=== PATIENT | male | born 1935 | race Caucasian/White ===

== ENCOUNTER 2017-01-06 01:42 | Inpatient (IN) | payer MEDICARE, OTHER ==
[2017-01-06] VITALS (8 sets, daily range): BP systolic 103–156; BP diastolic 54–76
[~2017-01-06] VITALS: Ht 170.2 cm; Wt 97.5 kg
[~2017-01-06 01:42] MED LIST: ATOR20TA PO; LIPA1CAP15 PO; METO-302 PO; MIRABEGRON PO; PANT40TA2 PO; TERA5CAP4 PO
--- NOTE | 2017-01-06 01:50 | NUR ---
PT PRESENTED TO THE ER WITH A C/O CP. PT STATED THAT HE HAD AN ANGIOGRAM 2 WKS AGO AT [facility]. PT STATED THAT HE HAD CP 3 DAYS AGO AND WAS GIVEN A ZIO XT HEART MONITOR TO WEAR. PT IS NOT ALLOWED TO HAVE AN XRAY WHILE WEARING THIS MONITOR. PT IS AA&O X4. 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 PT IS C/O CP THAT RADIATES TO AND FROM THE RT AND LT SHOULDERS. PT IS ON THE MONITOR, CONTINUOUS PULSE OX, AND IS PLACED ON 2L O2 VIA NC PER CHEST PAIN PROTOCOL. 18G IV STARTED IN RT WRIST. BLOOD WAS DRAWN AND SENT TO LAB.
[2017-01-06] MEDS ORDERED: NITROGLYCERIN 0.4 MG/TAB BOTTLE SL ONE (02:00)
[2017-01-06] MEDS ORDERED: MORPHINE SULFATE INJ 2 MG/ML DISP.SYRIN IV ONE (02:00)
[2017-01-06] MEDS ORDERED: ASPIRIN 325 MG TABLET PO ONE (02:00)
[2017-01-06] MEDS ORDERED: ASPIRIN 325 MG TABLET ONE (02:06)
[2017-01-06] MEDS ORDERED: MORPHINE SULFATE INJ 10 MG/ML DISP.SYRIN ONE (02:08)
--- NOTE | 2017-01-06 02:12 | NUR ---
RECEIVED MORPHINE 10MG FROM ICU PYXIS. 6MG MORPHINE IV WASTED BY RN IGNACIA AND ALEIDA. ORDERS TO GIVE 4MG MORPHINE IVP PER DR. GALLOWAY
--- NOTE | 2017-01-06 02:13 | NUR ---
RN: NURSING SCENERY BUILDER REQUESTED MORPHINE 10MG IV TO BE PULLED OUT FROM ICU OMNICELL. MD ORDER PER NURSING SCENERY BUILDER IS MORPHINE 4MG IV FOR CHEST PAIN. MORPHINE VIAL HANDED TO HILDA. MEDICATION NOT ADMINISTERED BY MYSELF OR STAFF MEMBER WHO WITNESSED WASTE.
[2017-01-06 02:15] LABS: BASOPHILS % (AUTO) 0.4 % (0.0-2.0); EOSINOPHILS # (AUTO) 0.1 /CMM (0.0-0.7); EOSINOPHILS % (AUTO) 1.9 % (0.0-6.0); HEMATOCRIT 36 % (39-51); HEMOGLOBIN 12.1 g/dL (13.5-17.5); LYMPHOCYTES # (AUTO) 1.6 /CMM (0.8-4.8); LYMPHOCYTES % (AUTO) 26.6 % (20.0-44.0); MEAN CORPUSCULAR HEMOGLOBIN 31 PG (26.0-33.0); MEAN CORPUSCULAR HGB CONC 33 g/dl (31.0-36.0); MEAN CORPUSCULAR VOLUME 93 fL (80-96); MONOCYTES # (AUTO) 0.7 /CMM (0.1-1.30); MONOCYTES % (AUTO) 11.5 % (2.0-12.0); NEUTROPHILS # (AUTO) 3.5 /CMM (1.8-8.9); NEUTROPHILS % (AUTO) 59.6 % (43.0-81.0); PLATELET COUNT (AUTO) 144 /CMM (150-450); RDW COEFFICIENT OF VARIATION 12.7 (11.5-15.0); WHITE BLOOD COUNT (AUTO) 5.9 K/uL (4.3-11.0)
--- NOTE | 2017-01-06 02:15 | NUR ---
PT STATED THAT THE MORPHINE IS NOT DOING ANYTHING FOR THE PAIN. PT WANTS THE DOCTOR TO KNOW THAT HE DOES NOT WANT ANY MORE MORPHINE. MD IS AWARE.
[2017-01-06 02:24] LABS: CALCIUM, SERUM 8.9 mg/dL (8.5-10.1); CARBON DIOXIDE 25 mmol/L (21-32); CHLORIDE 107 mmol/L (98-107); CREATININE 1.9 mg/dL (0.6-1.3); GLUCOSE 132 mg/dL (74-106); POTASSIUM 4.3 mmol/L (3.5-5.1); SODIUM SERUM 140 mmol/L (136-145); UREA NITROGEN, BLOOD 30 mg/dL (7-18)
[2017-01-06 02:26] LABS: INR 1.03 (0.87-1.13); PROTHROMBIN TIME 10.7 SECS (9.5-12.7)
[2017-01-06 02:31] LABS: TROPONIN I < 0.017 ng/mL (0.00-0.056)
[2017-01-06 02:37] LABS: B-TYPE NATRIURETIC PEPTIDE 181 PG/ML (0-125)
--- NOTE | 2017-01-06 02:50 | NUR ---
BED 306-1 TELE
--- NOTE | 2017-01-06 03:15 | NUR ---
PT APPEARS TO BE RESTING COMFORTABLY WITH NO S/S OF PAIN OR DISTRESS. RESP EVEN AND UNLABORED.
--- NOTE | 2017-01-06 03:30 | NUR ---
CALLING REPORT TO DARREL COONEY - TELE
--- NOTE | 2017-01-06 03:40 | NUR ---
PT TRANSPORTED TO TELE VIA GURNEY WITH EMT AND RN, PER PROTOCOL.
--- NOTE | 2017-01-06 03:45 | NUR ---
TELE/RN OPENING NOTES PT RECEIVED FROM ER VIA [facility]. AMBULATED TO BED WITH STANDBY ASSISTANCE. PLACE ON 2L O2 VIA NC, BREATHING EVEN AND UNLABORED. DENIES SOB. CHEST PAIN 2-3/10 TO LEFT SIDE, STATES HE "FEELS MUCH BETTER AND ITS LIGHT PRESSURE". PLACED ON TELE MONITOR SHOWING SINUS MARIAELENA WITH HEART RATE AT 54. IV TO RIGHT WRIST PATENT AND INTACT. BED IN LOW/LOCKED POSITION WITH CALL LIGHT IN REACH. SIDE RAILS UPX2. ORIENTED PT TO ROOM AND CALL LIGHT. WILL CONTINUE TO MONITOR
[2017-01-06] MEDS ORDERED: hydrALAZINE HCL 25 MG TABLET PO PRN (04:00)
[2017-01-06] MEDS ORDERED: ACETAMINOPHEN 325 MG TABLET PO PRN (04:00)
[2017-01-06] MEDS ORDERED: ZOLPIDEM TARTRATE 5 MG TABLET PO PRN (04:00)
[2017-01-06] MEDS ORDERED: MORPHINE SULFATE INJ 2 MG/ML DISP.SYRIN IV PRN (04:00)
[2017-01-06] MEDS ORDERED: HYDROCODONE/APAP 5/325MG 1 EACH TABLET PO PRN (04:00)
[2017-01-06] MEDS ORDERED: MAG HYDROX/AL HYDROX/SIMETH 30 ML UDC PO PRN (04:00)
[2017-01-06] MEDS ORDERED: MAGNESIUM HYDROXIDE 30 ML UDC PO PRN (04:00)
[2017-01-06] MEDS ORDERED: ONDANSETRON HCL/PF 4 MG/2 ML VIAL IVP PRN (04:00)
[2017-01-06] MEDS ORDERED: ENOXAPARIN SODIUM 40 MG/0.4 ML DISP.SYRIN SQ SCH (04:00)
[2017-01-06] MEDS ORDERED: Z GUARD REMEDY 2 OZ OINT TP PRN (04:00)
[2017-01-06] MEDS ORDERED: ENOXAPARIN SODIUM 40 MG/0.4 ML DISP.SYRIN SQ ONE (04:36)
--- NOTE | 2017-01-06 06:49 | NUR ---
TELE/RN CLOSING NOTES PT ASLEEP, EASILY AROUSABLE TO NAME. A/OX4. REMAINS ON 2L O2 VIA NC, BREATHING EVEN AND UNLABORED. NO COMPLAINTS OF CHEST PAIN AT THIS TIME. PT IS COMFORTABLE. IV TO RIGHT WRIST PATENT AND INTACT. HOLTER MONITOR IN PLACE. ON TELE MONITOR SHOWING SINUS MARIAELENA WITH HR AT 53. PT MADE COMFORTABLE DURING SHIFT. ALL NEEDS MET. BED IN LOW/LOCKED POSITION WITH CALL LIGHT IN REACH. SIDE RAILS UPX2. WILL ENDORSE TO AM SHIFT JASON.
--- NOTE | 2017-01-06 07:24 | NUR ---
RN OPENING NOTES RECEIVED PATIENT RESTING COMFORTABLY IN BED. EASILY AROUSABLE. AOX4. DENIES CP OR SOB. DENIES ANY PAIN AT THIS TIME. RESPIRATIONS EVEN AND UNLABORED. NO ACUTE DISTRESS NOTED. IV ACCESS ON THE RIGHT WRIST 18G PATENT AND INTACT. BED LOCKED IN THE LOWEST POSITION WITH SIDE RAILS UP X2. CALL LIGHT WITHIN REACH. WILL CONTINUE TO MONITOR, ASSESS AND EDUCATE PATIENT THROUGHOUT SHIFT.
[2017-01-06] MEDS ORDERED: HYDROMORPHONE 1 MG/1 ML DISP.SYRIN IV PRN (07:30)
[2017-01-06] MEDS: METOPROLOL SUCCINATE 25 MG TAB.SR.24H PO SCH (09:25)
[2017-01-06] MEDS: ATORVASTATIN 10 MG TABLET PO SCH (09:25)
[2017-01-06] MEDS: ASPIRIN 81 MG TAB.CHEW PO SCH (09:26)
[2017-01-06] MEDS ORDERED: IV NS 0.9% 1,000 ML IV PRN (09:28)
[2017-01-06] MEDS: AMLODIPINE BESYLATE 10 MG TABLET PO SCH (09:30)
--- NOTE | 2017-01-06 11:14 | NUR ---
RN NON ADMIN NOTES HELD [facility]. BP 98/51.
--- NOTE | 2017-01-06 14:11 | NUR ---
RN NOTES PATIENT HAS POSITIVE TROPONIN. CALLED AND REPORTED TO DR. GENTILE. PATIENT TO HAVE TROP. IN THE AM. PATEINT ALSO TO BE PLACED BACK ON TELE PER DR. GENTILE. WILL CARRY OUT ORDERS.
--- NOTE | 2017-01-06 19:01 | NUR ---
RN CLOSING NOTES PATIENT RESTING COMFORTABLY IN BED. AOX4. IV PATENT AND INTACT WITH NS RUNNING AT 125ML/HR. ON TELE MONITOR READING SB 53. ON 2LPM. NO ACUTE DISTRESS. RESPIRATIONS EVEN AND UNLABORED. DENIES ANY PAIN AT THIS TIME. DENIES SOB AND CP. ALL NEEDS MET. ALL MEDS GIVEN NEEDED. WILL ENDORSE TO NIGHT RN FOR JASON.
--- NOTE | 2017-01-06 19:30 | NUR ---
RN NOTE; RECEIVED PT UP IN W/C USING HIS LAPTOP. AWAKE AND ALERT. BREATHING EVENLY. NO SOB. O2 SAT 97% ON RA. NAD. SKIN WARM AND DRY,. NO C/O PAIN OR DISCOMFORT. DENIED CHEST PAIN AT THIS TIME. TELE MONITOR IN PLACE READING SB. NEEDS ATTENDED. CALL LIGHT WITHIN REACH ,WILL CONT TO MONITOR.
--- NOTE | 2017-01-06 19:43 | NUR ---
PT REPORTED NO BM FOR PAST TWO DAYS AND C/O CONSTIPATION. DARREL DUNBAR FOR DAY SHIFT SPOKE TO DR. LALA PERSONALLY ON THE FLOOR AND RECEIVED VERBAL ORDER FOR COLACE 250MG PO QHS. ORDER WAS PLACED.
[2017-01-06] MEDS ORDERED: DOCUSATE SODIUM 250 MG CAPSULE PO ONE (21:13)
[2017-01-06] MEDS ORDERED: DOCUSATE SODIUM 250 MG CAPSULE PO SCH (22:00)
[2017-01-07] VITALS: BP 156/79
[2017-01-07 04:00] VITALS: BP 128/69
--- NOTE | 2017-01-07 06:25 | NUR ---
PT IN BED SLEEPING. BREATHING EVENLY. NO SOB. NO ACUTE EVENT DURING THE NIGHT. NO C/O CP. SR/ SB ON TELE MONITOR. REFUSED IVF HYDRATION MOST OF THE TIME. NEEDS ATTENDED . PRUNE JUICE AND COLACE GIVEN FOR C/O CONSTIPATION. WILL ENDORSE TO AM SHIFT TO F/U. NEEDS ATTENDED, CALL LIGHT WITHIN REACH, WILL CONT TO MONITOR AND WILL ENDORSE TO AM SHIFT FOR JASON.
[2017-01-07 06:49] LABS: BASOPHILS % (AUTO) 0.7 % (0.0-2.0); EOSINOPHILS # (AUTO) 0.1 /CMM (0.0-0.7); EOSINOPHILS % (AUTO) 2.4 % (0.0-6.0); HEMATOCRIT 36 % (39-51); HEMOGLOBIN 12.1 g/dL (13.5-17.5); LYMPHOCYTES # (AUTO) 1.3 /CMM (0.8-4.8); MEAN CORPUSCULAR HEMOGLOBIN 31 PG (26.0-33.0); MEAN CORPUSCULAR HGB CONC 33 g/dl (31.0-36.0); MEAN CORPUSCULAR VOLUME 93 fL (80-96); MONOCYTES # (AUTO) 0.7 /CMM (0.1-1.30); MONOCYTES % (AUTO) 11.3 % (2.0-12.0); NEUTROPHILS # (AUTO) 3.7 /CMM (1.8-8.9); NEUTROPHILS % (AUTO) 63.6 % (43.0-81.0); PLATELET COUNT (AUTO) 147 /CMM (150-450); RDW COEFFICIENT OF VARIATION 12.4 (11.5-15.0); RED BLOOD CELL COUNT(AUTO) 3.88 MIL/uL (4.5-6.0); WHITE BLOOD COUNT (AUTO) 5.9 K/uL (4.3-11.0)
[2017-01-07 07:00] VITALS: BP 122/71
[2017-01-07 07:06] LABS: CHOLESTEROL 99 mg/dL (<200); HDL CHOLESTEROL 37 mg/dL (40-60); LDL 53 mg/dL (0-99); TRIGLYCERIDES 78 mg/dL (30-150)
[2017-01-07 07:12] LABS: ALANINE AMINOTRANSFERASE 19 U/L (12-78); ALBUMIN 3.1 g/dL (3.4-5.0); ALKALINE PHOSPHATASE 88 U/L (46-116); ASPARTATE AMINOTRANSFERASE 24 U/L (15-37); BILIRUBIN,TOTAL 0.8 mg/dL (0.2-1.0); CALCIUM, SERUM 8.9 mg/dL (8.5-10.1); CARBON DIOXIDE 25 mmol/L (21-32); CHLORIDE 109 mmol/L (98-107); CREATININE 1.4 mg/dL (0.6-1.3); GLUCOSE 95 mg/dL (74-106); PHOSPHORUS 3.1 mg/dL (2.5-4.9); POTASSIUM 4.4 mmol/L (3.5-5.1); SODIUM SERUM 142 mmol/L (136-145); TOTAL PROTEIN, SERUM 6.6 g/dL (6.4-8.2); UREA NITROGEN, BLOOD 23 mg/dL (7-18)
[2017-01-07 07:22] LABS: TROPONIN I 0.539 ng/mL (0.00-0.056)
--- NOTE | 2017-01-07 07:26 | NUR ---
RN OPENING NOTES RECEIVED PATIENT RESTING COMFORTABLY IN BED. EASILY AROUSABLE. AOX4. DENIES CP OR SOB. DENIES ANY PAIN AT THIS TIME. RESPIRATIONS EVEN AND UNLABORED. NO ACUTE DISTRESS NOTED. IV ACCESS ON THE RIGHT WRIST 18G PATENT AND INTACT. REFUSING IV NS @125 ML/HR. BED LOCKED IN THE LOWEST POSITION WITH SIDE RAILS UP X2. CALL LIGHT WITHIN REACH. WILL CONTINUE TO MONITOR, ASSESS AND EDUCATE PATIENT THROUGHOUT SHIFT.
--- NOTE | 2017-01-07 07:27 | NUR ---
RN NOTES CRITICAL RESULT REPORTED TO DR. LALA. TROP 0.538. WILL CONTINUE TO MONITOR.
[2017-01-07 08:00] VITALS: BP 122/77
[2017-01-07] MEDS ORDERED: ENOXAPARIN SODIUM 30 MG/0.3 ML DISP.SYRIN SQ SCH (09:00)
[2017-01-07] MEDS: METOPROLOL SUCCINATE 25 MG TAB.SR.24H PO SCH (09:00)
[2017-01-07] MEDS: ASPIRIN 81 MG TAB.CHEW PO SCH (09:25)
[2017-01-07] MEDS: ATORVASTATIN 10 MG TABLET PO SCH (09:25)
[2017-01-07 09:26] VITALS: BP 122/71
[2017-01-07] MEDS: AMLODIPINE BESYLATE 10 MG TABLET PO SCH (09:26)
--- NOTE | 2017-01-07 09:26 | NUR ---
RN NON ADMIN NOTES PATIENT HR 54. WILL CONTINUE TO MONITOR.
--- NOTE | 2017-01-07 09:32 | NUR ---
RN CORINA LIND DISCUSSED IN LENGTH THE RISKS OF LEAVING. PATIENT SIGNED AMA. DR. FOX AND DR. GENTILE AWARE.
--- NOTE | 2017-01-07 10:00 | NUR ---
DISCHARGE AMA PATIENT GIVEN DISCHARGE INSTRUCTION. AMA DOCUMENTATION SIGNED AND PLACED IN CHART. PATIENT SPOKE WITH DR. GENTILE AND DR. FOX IN LENGTH OF RISKS OF LEAVING. PATIENT VERBALIZED UNDERSTANDING. EXITCARE PROVIDED. PRESCRIPTION GIVEN TO PATIENT. ALL BELONGINGS ACCOUNTED FOR. ALL APPROPRIATE DOCUMENTATION PROVIDED. WILL WRITE INCIDENT REPORT.
--- NOTE | 2017-01-07 10:05 | NUR ---
INCIDENT REPORT PATIENT SEEN BY DR. GENTILE AND DR. FOX. BOTH DR. FOX AND DR. GENTILE SPOKE IN LENGTH THAT THE PATIENT HAD A POSITIVE TROPONIN OF 0.539 THIS MORNING AND DO NOT SUGGEST THAT THE PATIENT LEAVE OR FLY TO [place] THE FOLLOWING DAY. PATIENT VERBALIZED UNDERSTANDING OF RISKS AFTER EDUCATION WAS GIVEN OF LEAVING THAT WERE EXPLAINED BY THE DOCTORS. PATIENT TOLD THAT HE WILL NOT BE DISCHARGED BUT ASKED TO LEAVE AMA ALTHOUGH IT IS RECOMMENDED FOR PATIENT TO REMAIN IN THE HOSPITAL. PATIENT SIGNED AMA DOCUMENTATION AND PLACED IN CHART AND GAVE COPY TO PATIENT. EXITCARE PROVIDED AND PRESCRIPTION EDUCATION GIVEN.
== END 2017-01-07 10:20 | disposition left against medical advice (07) | DRG 280 ==
LOC: ER 01:44 → TELE 03:15 → MED 12:07 → TELE 14:11
PROVIDERS: ADMIT Internal Medicine; ATTEND Internal Medicine
DX: I21.4 Non-ST elevation (NSTEMI) myocardial infarction (principal); N17.0 Acute kidney failure with tubular necrosis; I13.0 Hypertensive heart and chronic kidney disease with heart failure and stage 1 through stage 4 chronic kidney disease, or unspecified chronic kidney disease; K86.1 Other chronic pancreatitis; I50.9 Heart failure, unspecified; D64.9 Anemia, unspecified; E66.9 Obesity, unspecified; E78.5 Hyperlipidemia, unspecified; I25.10 Atherosclerotic heart disease of native coronary artery without angina pectoris; I48.91 Unspecified atrial fibrillation; K21.9 Gastro-esophageal reflux disease without esophagitis; N18.9 Chronic kidney disease, unspecified; Z87.442 Personal history of urinary calculi; Z98.61 Coronary angioplasty status; Z68.33 Body mass index [BMI] 33.0-33.9, adult
CPT/HCPCS: 36415; 80048-TC; 80053-TC; 80061-TC; 83735-TC; 83880; 84100-TC; 84484-TC; 85025-TC; 85730-TC; 87081-TC; 93307-TC; A4606; J1650; J2270; J7030; Z7610

== ENCOUNTER 2017-06-08 19:31 | Emergency (ER) | payer MEDICARE, OTHER ==
[~2017-06-08] VITALS: Ht 175.3 cm; Wt 95.3 kg
[~2017-06-08 19:31] MED LIST changes: -METO-302 PO; +METO-356 PO
--- NOTE | 2017-06-08 19:35 | NUR ---
PT BBRA C/O "I HAD STENT PLACED IN RT KIDNEY 2 DAYS AGO AND NOW I HAVE PAIN AND BLOOD IN MY URINE". PT STATES R SIDED BLOWER BACK PAIN 11/23. PT NOTED TO BE IN MILD DISTRESS. PT STATES "MY PAIN IS BAD AND I CANT BREATH BECUASE OF MY PAIN", RA SPO2 97%. PT PLACED ON NC 3L/M WITH SPO2 99% PER MD. VSS. RESP EVEN AND RAPID. PT NOTED TO BE ANXIOUS. PT PLACED IN GOWN AND PLACED ON MONITOR AND POX. AWAITING MD FOR EVAL.
[2017-06-08] MEDS ORDERED: ONDANSETRON HCL/PF 4 MG/2 ML VIAL IVP ONE (20:00)
[2017-06-08] MEDS ORDERED: HYDROMORPHONE INJ 2 MG/ML DISP.SYRIN IV ONE (20:00)
[2017-06-08] MEDS ORDERED: IV NS 0.9% 500 ML BAG IV ONE (20:00)
[2017-06-08] MEDS ORDERED: HYDROMORPHONE INJ 2 MG/ML DISP.SYRIN ONE (20:07)
[2017-06-08] MEDS ORDERED: ONDANSETRON HCL/PF 4 MG/2 ML VIAL ONE (20:07)
[2017-06-08 20:40] LABS: CALCIUM, SERUM 9.5 mg/dL (8.5-10.1); CARBON DIOXIDE 27 mmol/L (21-32); CHLORIDE 104 mmol/L (98-107); CREATININE 1.7 mg/dL (0.6-1.3); GLUCOSE 100 mg/dL (74-106); POTASSIUM 4.4 mmol/L (3.5-5.1); SODIUM SERUM 139 mmol/L (136-145); UREA NITROGEN, BLOOD 19 mg/dL (7-18)
[2017-06-08 20:42] LABS: ALANINE AMINOTRANSFERASE 210 U/L (12-78); ALBUMIN 3.7 g/dL (3.4-5.0); ALKALINE PHOSPHATASE 284 U/L (46-116); ASPARTATE AMINOTRANSFERASE 350 U/L (15-37); BILIRUBIN,DIRECT 1.8 mg/dL (0.0-0.2); BILIRUBIN,TOTAL 2.9 mg/dL (0.2-1.0); TOTAL PROTEIN, SERUM 8.3 g/dL (6.4-8.2)
[2017-06-08 20:53] LABS: BASOPHILS # (AUTO) 0.3 /CMM (0.0-0.2); BASOPHILS % (AUTO) 3.1 % (0.0-2.0); EOSINOPHILS % (AUTO) 0.7 % (0.0-6.0); HEMATOCRIT 36 % (39-51); HEMOGLOBIN 12.2 g/dL (13.5-17.5); LYMPHOCYTES % (AUTO) 8.9 % (20.0-44.0); MEAN CORPUSCULAR HGB CONC 34 g/dl (31.0-36.0); MEAN CORPUSCULAR VOLUME 91 fL (80-96); MONOCYTES # (AUTO) 0.9 /CMM (0.1-1.30); MONOCYTES % (AUTO) 8.3 % (2.0-12.0); NEUTROPHILS # (AUTO) 8.5 /CMM (1.8-8.9); PLATELET COUNT (AUTO) 151 /CMM (150-450); RDW COEFFICIENT OF VARIATION 13.2 (11.5-15.0); RED BLOOD CELL COUNT(AUTO) 3.94 MIL/uL (4.5-6.0); WHITE BLOOD COUNT (AUTO) 10.8 K/uL (4.3-11.0)
[2017-06-08 20:59] LABS: INR 1.02 (0.87-1.13)
--- NOTE | 2017-06-08 21:25 | NUR ---
URINE SAMPLE COLLECTED AND CALLED LAB FOR PICKUP
--- NOTE | 2017-06-08 21:30 | NUR ---
ZONING ENGINEER BEDSIDE WITH PT.
--- NOTE | 2017-06-08 22:02 | NUR ---
CALLED [facility] FOR PANEL CALL AND [employer] PROGRAMMER ALYSIA DONG WAS PAGED
--- NOTE | 2017-06-08 22:06 | NUR ---
NIR BENAVIDES ON PHONE WITH DELORES HATFIELD
--- NOTE | 2017-06-08 22:50 | NUR ---
IV removed. Catheter intact and site benign. Pressure and 4x4 applied to site. No bleeding noted.
--- NOTE | 2017-06-08 23:00 | NUR ---
Patient discharged to home in stable condition. Written and verbal after care instructions given. Patient verbalizes understanding of instruction.
[2017-06-08 23:07] LABS: APPEARANCE,URINE CLOUDY (CLEAR); BILIRUBIN,URINE 1+ (NEGATIVE); BLOOD, URINE 3+ Ery/uL (NEGATIVE); COLOR,URINE ORANGE (YELLOW); KETONES,URINE NEGATIVE (NEGATIVE); LEUKOCYTE ESTERASE ,URINE TRACE (NEGATIVE); NITRITE, URINE NEGATIVE (NEGATIVE); PH,URINE 8.5 (5.0-8.0); PROTEIN,URINE 2+ mg/dl (NEGATIVE); UGLUCOSE NEGATIVE (NEGATIVE)
[2017-06-08 23:20] LABS: BACTERIA,URINE None seen /HPF (None Seen); RBC,URINE 81-100 /HPF (0-2); SQUAMOUS EPITHELIAL CELL,UR Few /HPF (None Seen)
[2017-06-08 23:36] VITALS: BP 146/66
== END 2017-06-08 23:39 | disposition left against medical advice (07) ==
LOC: ER 19:35
DX: K85.90 Acute pancreatitis without necrosis or infection, unspecified (principal); R74.0 Nonspecific elevation of levels of transaminase and lactic acid dehydrogenase [LDH]; R74.8 Abnormal levels of other serum enzymes; R11.2 Nausea with vomiting, unspecified; R31.9 Hematuria, unspecified; I25.10 Atherosclerotic heart disease of native coronary artery without angina pectoris; I12.0 Hypertensive chronic kidney disease with stage 5 chronic kidney disease or end stage renal disease; N18.6 End stage renal disease; E78.5 Hyperlipidemia, unspecified; N40.0 Benign prostatic hyperplasia without lower urinary tract symptoms; Z87.442 Personal history of urinary calculi; Z95.5 Presence of coronary angioplasty implant and graft; Z60.2 Problems related to living alone
CPT/HCPCS: 36415; 71045; 74176; 76705; 80048; 80076; 81001; 83690; 84484; 85025; 85730; 87081; 87086; 93005; 96374; 96375; 99291; A4606; J1170; J2405; J7040; 81000-TC; Z7610

== ENCOUNTER 2019-07-07 18:47 | Emergency (ER) | payer MEDICARE, OTHER ==
[~2019-07-07] VITALS: Ht 175.3 cm; Wt 102.1 kg
[~2019-07-07 18:47] MED LIST changes: -METO-356 PO; +METO25TA4 PO
--- NOTE | 2019-07-07 19:04 | NUR ---
PT BIBSELF, AAOX4, AMBULATORY. C/O MULTIPLE LAC S/P FALLING ON HIS SIDE WHILE WORKING IN HIS GARAGE. PT PLACED ON MONITOR AND PULSE OX. RR EVEN AND UNLABORED. UPON ASSESSMENT MULTIPLE LACS NOTED. FIRST ONE ON HIS R FLANK AREA 3CM, SECOND ON LEFT LOWER EXTR. MINIMAL BLEEDING NOTED. EMT AT BEDSIDE.
--- NOTE | 2019-07-07 19:07 | NUR ---
DR VELASQUEZ AT BEDSIDE FOR EVAL.
[2019-07-07] MEDS ORDERED: TDAP [DIPH/PERTUSSIS/TET] 0.5 ML VIAL IM ONE ×2 (19:10→19:30)
--- NOTE | 2019-07-07 19:18 | NUR ---
EMT AT BEDSIDE FOR WOUND CARE
--- NOTE | 2019-07-07 19:48 | NUR ---
WOUND CARE DONE, MD AWARE.
[2019-07-07 20:27] VITALS: BP 134/76
--- NOTE | 2019-07-07 20:27 | NUR ---
Patient discharged to home in stable condition. Written and verbal after care instructions given. Patient verbalizes understanding of instruction. Pt ambulated with steady gait. VSS.
== END 2019-07-07 20:28 | disposition home or self-care (01) ==
LOC: ER 18:54
DX: S31.010A Laceration without foreign body of lower back and pelvis without penetration into retroperitoneum, initial encounter (principal); S81.812A Laceration without foreign body, left lower leg, initial encounter; S50.811A Abrasion of right forearm, initial encounter; S50.312A Abrasion of left elbow, initial encounter; I12.0 Hypertensive chronic kidney disease with stage 5 chronic kidney disease or end stage renal disease; N18.6 End stage renal disease; N40.0 Benign prostatic hyperplasia without lower urinary tract symptoms; E78.5 Hyperlipidemia, unspecified; Z98.890 Other specified postprocedural states; Z60.2 Problems related to living alone; Z79.899 Other long term (current) drug therapy; W11.XXXA Fall on and from ladder, initial encounter; Y93.89 Activity, other specified; Y92.098 Other place in other non-institutional residence as the place of occurrence of the external cause; Y99.8 Other external cause status
CPT/HCPCS: 90715

== ENCOUNTER 2019-07-08 07:28 | Emergency (ER) | payer MEDICARE, OTHER ==
[~2019-07-08] VITALS: Ht 170.2 cm; Wt 102.1 kg
[2019-07-08 07:40] VITALS: BP 133/71
--- NOTE | 2019-07-08 07:54 | NUR ---
DR KAY AT BEDSIDE FOR SUTURING
--- NOTE | 2019-07-08 08:10 | NUR ---
SUTURING DONE BY
--- NOTE | 2019-07-08 08:21 | NUR ---
WOUND DRESSING DONE BY HOME ASSESSMENT NURSE.
--- NOTE | 2019-07-08 08:22 | NUR ---
Patient discharged to home in stable condition. Written and verbal after care instructions given. Patient verbalizes understanding of instruction.
[2019-07-08] MEDS ORDERED: LIDOCAINE 0.5%-EPI 1:200,000 50 ML VIAL ONE (16:31)
== END 2019-07-08 08:23 | disposition home or self-care (01) ==
LOC: ER 07:31
DX: S31.119A Laceration without foreign body of abdominal wall, unspecified quadrant without penetration into peritoneal cavity, initial encounter (principal); I25.10 Atherosclerotic heart disease of native coronary artery without angina pectoris; E78.5 Hyperlipidemia, unspecified; I12.0 Hypertensive chronic kidney disease with stage 5 chronic kidney disease or end stage renal disease; N18.6 End stage renal disease; Z98.890 Other specified postprocedural states; Z87.442 Personal history of urinary calculi; Z60.2 Problems related to living alone; Z79.899 Other long term (current) drug therapy; W18.39XA Other fall on same level, initial encounter; Y93.89 Activity, other specified; Y92.89 Other specified places as the place of occurrence of the external cause; Y99.8 Other external cause status
CPT/HCPCS: 12001; 99282; J3490

== ENCOUNTER 2019-07-08 16:00 | Emergency (ER) | payer MEDICARE, OTHER ==
[~2019-07-08] VITALS: Ht 170.2 cm; Wt 99.8 kg
[2019-07-08] MEDS ORDERED: LIDOCAINE /MPF 1% VIAL 5 ML VIAL ONE (16:08)
[2019-07-08] MEDS ORDERED: LIDOCAINE 1%-EPI 1:100,000 20 ML VIAL ONE (16:27)
[2019-07-08] MEDS ORDERED: LIDOCAINE 0.5%-EPI 1:200,000 50 ML VIAL IJ ONE (16:30)
[2019-07-08] MEDS ORDERED: GELATIN SPONGE,ABSORBABLE 1 SPONGE SPONGE TP ONE (17:45)
--- NOTE | 2019-07-08 18:00 | NUR ---
Patient awake alert non distress awaiting for Ct result
--- NOTE | 2019-07-08 19:04 | NUR ---
[facility] report to Keshia Sesay
--- NOTE | 2019-07-08 19:17 | NUR ---
Patient discharged to home in stable condition. Written and verbal after care instructions given. Patient verbalizes understanding of instruction.PT ambulatory with a steady gait
[2019-07-08 19:18] VITALS: BP 124/81
--- NOTE | 2019-07-08 19:18 | NUR ---
No bleeding noted on the site.
== END 2019-07-08 19:19 | disposition home or self-care (01) ==
LOC: ER 16:03
DX: S81.812A Laceration without foreign body, left lower leg, initial encounter (principal); S50.811A Abrasion of right forearm, initial encounter; S50.312A Abrasion of left elbow, initial encounter; R51 Headache; I12.0 Hypertensive chronic kidney disease with stage 5 chronic kidney disease or end stage renal disease; N18.6 End stage renal disease; N40.0 Benign prostatic hyperplasia without lower urinary tract symptoms; E78.5 Hyperlipidemia, unspecified; M19.90 Unspecified osteoarthritis, unspecified site; Z98.890 Other specified postprocedural states; Z60.2 Problems related to living alone; Z79.899 Other long term (current) drug therapy; W11.XXXA Fall on and from ladder, initial encounter; Y93.89 Activity, other specified; Y92.89 Other specified places as the place of occurrence of the external cause; Y99.8 Other external cause status
CPT/HCPCS: 12002; 70450; 99284; A6403; J3490